=== PATIENT | female | born 1945 | race Caucasian/White ===

== ENCOUNTER 2024-11-20 14:36 | Outpatient (CLI) | payer MEDICARE, SELFPAY ==
--- NOTE | 2024-11-20 14:16 | DI.RAD_ITS ---
Exam(s) XR HIP LT COMPLETE AP PELVIS EXAM: XR HIP LT COMPLETE AP PELVIS CLINICAL HISTORY: left hip DJD. TECHNIQUE: 2D digital imaging was performed. COMPARISON: No exams were available for comparison FINDINGS: 3 views There is a trans sacral stimulator. The device is over the left buttock. There is no evidence of pelvic nor hip fracture. Left hip appears unremarkable. There are moderate degenerative changes in the right hip. Bone density normal. No osseous lesions. IMPRESSION: Left hip appears unremarkable. There are moderate degenerative changes in the opposite-right hip. DATA REPOSITORY: RADIATION DOSE DELIVERED:
== END 2024-11-20 14:37 | disposition home or self-care (01) ==
LOC: DIORS 14:37
PROVIDERS: PCP Internal Medicine; Referring Provider Internal Medicine; Visit Provider Physician Assistant
DX: M16.12 Unilateral primary osteoarthritis, left hip (principal); M54.16 Radiculopathy, lumbar region; M54.50 Low back pain, unspecified
CPT/HCPCS: 99204; 73502

== ENCOUNTER → 2025-01-01 08:57 | Outpatient (BNVA) | payer MEDICARE, SELFPAY | PROVIDERS: PCP Internal Medicine; Referring Provider Internal Medicine; Visit Provider Student in an Organized Health Care Education/Training Program | DX: M16.12 Unilateral primary osteoarthritis, left hip (principal); M51.362 Other intervertebral disc degeneration, lumbar region with discogenic back pain and lower extremity pain | CPT/HCPCS: 99214 ==